=== PATIENT | female | born 1990 | race Caucasian/White ===

== ENCOUNTER 2019-03-30 02:13 | Emergency (ER) | payer BC ==
[2019-03-30 03:12] LABS: ABS Basophils 0.1 10^3/ul (0-0.2); ABS Eosinophils 0.2 10^3/ul (0-0.6); ABS Lymphocytes 2.1 10^3/ul (1.0-4.8); ABS Monocytes 0.6 10^3/ul (0-0.8); ABS Neutrophils 4.5 10^3/ul (1.5-7.7); Hematocrit 39 % (35-47); Hemoglobin 12.7 g/dL (12.0-16.0); Lymphocyte % 28.2 %; Mean Corpuscular HGB Conc 33 g/dL (31-36); Mean Corpuscular Hemoglobin 27 pg (27-31); Mean Corpuscular Volume 82 fL (80-97); Mean Platelet Volume 8.7 fL (7.4-10.4); Nucleated Red Blood Cells % 0.1; Platelet Count 261 10^3/uL (150-450); Red Blood Count 4.68 10^6 /uL (3.70-4.87); Red Cell Distribution Width 14 % (10-15); White Blood Count 7.5 10^3/uL (3.5-10.8)
[2019-03-30 03:34] LABS: ALT 19 U/L (7-52); AST 18 U/L (13-39); Albumin 3.9 g/dL (3.2-5.2); Albumin/Globulin Ratio 1.4 (1-3); Alkaline Phosphatase 81 U/L (34-104); Anion Gap 6 mmol/L (2-11); Blood Urea Nitrogen 20 mg/dL (6-24); CO2 Carbon Dioxide 26 mmol/L (22-32); Calcium 8.9 mg/dL (8.6-10.3); Chloride 108 mmol/L (101-111); EGFR African American 108.8 (>60); EGFR Non-African American 89.9 (>60); Globulin 2.7 g/dL (2-4); Glucose 102 mg/dL (70-100); Potassium 3.5 mmol/L (3.5-5.0); Sodium 140 mmol/L (135-145); Total Protein 6.6 g/dL (6.4-8.9)
[2019-03-30 03:40] LABS: HCG Pregnancy < 0.60 mIU/mL
--- NOTE | 2019-03-30 03:55 | ED ---
Shortness of Breath - HPI Summary HPI Summary: This patient is a 28 year old F presenting to [facility] with a chief complaint of SOB since 2 hours ago, 03/30/19. Symptoms aggravated by nothing. Symptoms alleviated by nothing. Pt reports she was sleeping when she woke up and felt SOB. Pt reports non-productive coughing since November due to Bronchitis. Pt denies fevers, CP, abdominal pain, swelling in legs. Pt denies med problems. Fhx blood clots in grandmother. Pt reports recent car trip from [place]. Not on oral contraceptives, does not smoke. Pt reports bilateral foot pain in the arches of her foot that she attributes to hiking. - History of Current Complaint Chief Complaint: EDShortnessOfBreath Time Seen by Provider: 03/30/19 02:37 Hx Obtained From: Patient Onset/Duration: Lasting Hours, Still Present Aggravating Factors: Nothing Alleviating Factors: Nothing Associated Signs & Symptoms: Cough (Nonproductive) - Allergy/Home Medications Allergies/Adverse Reactions: Allergies Allergy/AdvReac Type Severity Reaction Status Date / Time No Known Allergies Allergy Verified 03/30/19 02:15 Home Medications: Home Medications NK [No Home Medications Reported] 03/30/19 [History Confirmed 03/30/19] PMH/Surg Hx/FS Hx/Imm Hx Cardiovascular History: Reports: Other Cardiovascular Problems/Disorders - denies blood clots Sensory History: Reports: Hx Contacts or Glasses Denies: Hx Deafness Opthamlomology History: Reports: Hx Contacts or Glasses Denies: Hx Legally Blind EENT History: Denies: Hx Deafness - Surgical History Surgery Procedure, Year, and Place: tonsillectomy and adenoidectomy Infectious Disease History: No Infectious Disease History: Denies: Traveled Outside the [place] in Last 30 Days - Family History Known Family History: Positive: Cardiac Disease - blood clots - Social History Alcohol Use: Occasionally Hx Substance Use: No Substance Use Type: Reports: None Hx Tobacco Use: No Smoking Status (MU): Never Smoked Tobacco Review of Systems Negative: Fever Negative: Chest Pain Positive: Shortness Of Breath, Cough Positive: Abdominal Pain Positive: Other - denies swelling in legs All Other Systems Reviewed And Are Negative: Yes Physical Exam - Summary Physical Exam Summary: Constitutional: Well-developed, Well-nourished, Alert. (-) Distressed Skin: Warm, Dry HENT: Normocephalic; Atraumatic Eyes: Conjunctiva normal Neck: Musculoskeletal ROM normal neck. (-) JVD, (-) Stridor, (-) Nuchal rigidity Cardio: Rhythm regular, rate normal, Heart sounds normal; Intact distal pulses; Radial pulses are 2+ and symmetric. (-) Murmur Pulmonary/Chest wall: Effort normal. (-) Respiratory distress, (-) Wheezes, (-) Rales Abd: Soft, (-) tenderness, (-) Distension, (-) Guarding, (-) Rebound Musculoskeletal: (-) Edema, no TTP bilateral feet Lymph: (-) Cervical adenopathy Neuro: Alert, Oriented x3 Psych: Mood and affect Normal Triage Information Reviewed: Yes Vital Signs On Initial Exam: Initial Vitals Temp Pulse Resp BP Pulse Ox 97.5 F 87 20 147/90 99 03/30/19 02:16 03/30/19 02:16 03/30/19 02:16 03/30/19 02:16 03/30/19 02:16 Vital Signs Reviewed: Yes Diagnostics - Vital Signs Vital Signs Temp Pulse Resp BP Pulse Ox 03/30/19 02:16 97.5 F 87 20 147/90 99 - Laboratory Lab Results: Lab Results 03/30/19 03/30/19 Range/Units 02:49 02:49 WBC 7.5 (3.5-10.8) 10^3/uL RBC 4.68 (3.70-4.87) 10^6 /uL Hgb 12.7 (12.0-16.0) g/dL Hct 39 (35-47) % MCV 82 (80-97) fL MCH 27 (27-31) pg MCHC 33 (31-36) g/dL RDW 14 (10-15) % Plt Count 261 (150-450) 10^3/uL MPV 8.7 (7.4-10.4) fL Neut % (Auto) 60.7 % Lymph % (Auto) 28.2 % Dent % (Auto) 8.1 % Eos % (Auto) 2.0 % Baso % (Auto) 1.0 % Absolute Neuts (auto) 4.5 (1.5-7.7) 10^3/ul Absolute Lymphs (auto) 2.1 (1.0-4.8) 10^3/ul Absolute Monos (auto) 0.6 (0-0.8) 10^3/ul Absolute Eos (auto) 0.2 (0-0.6) 10^3/ul Absolute Basos (auto) 0.1 (0-0.2) 10^3/ul Absolute Nucleated RBC 0.0 10^3/ul Nucleated RBC % 0.1 Sodium 140 (135-145) mmol/L Potassium 3.5 (3.5-5.0) mmol/L Chloride 108 (101-111) mmol/L Carbon Dioxide 26 (22-32) mmol/L Anion Gap 6 (2-11) mmol/L BUN 20 (6-24) mg/dL Creatinine 0.77 (0.51-0.95) mg/dL Est GFR ( Amer) 108.8 (>60) Est GFR (Non-Af Amer) 89.9 (>60) BUN/Creatinine Ratio 26.0 H (8-20) Glucose 102 H (70-100) mg/dL Calcium 8.9 (8.6-10.3) mg/dL Total Bilirubin 0.40 (0.2-1.0) mg/dL AST 18 (13-39) U/L ALT 19 (7-52) U/L Alkaline Phosphatase 81 (34-104) U/L Total Protein 6.6 (6.4-8.9) g/dL Albumin 3.9 (3.2-5.2) g/dL Globulin 2.7 (2-4) g/dL Albumin/Globulin Ratio 1.4 (1-3) Beta HCG, Quant < 0.60 mIU/mL Result Diagrams: 03/30/19 02:49 03/30/19 02:49 Lab Statement: Any lab studies that have been ordered have been reviewed, and results considered in the medical decision making process. - Radiology Chest X-Ray Radiology Interpretation Completed By: ED Physician Summary of Radiographic Findings: Per ED physician,. No acute process. Pending official report. - EKG 251 Cardiac Rate: NL - 92 BPM Summary of EKG Findings: An EKG at 0252 reveals normal sinus rhythm 92 BPM. T- wave inversion lead 3. No STEMI. No acute changes. Course/Dx - Course Course Of Treatment: 28-year-old female presents with shortness of breath. Physical exam well-appearing, lungs clear bilaterally. EKG w TWI in lead III otherwise unremarkable. Shortness of breath ddx: consider: COPD exacerbation/ asthma - no h/o COPD, no wheezing on exam. Low suspicion. PNA - no sputum production, no fevers or chills. No leukocytosis. CXR w/o infiltrate. Low suspicion. PTX - breath sounds equal, no risk factors for PTX, CXR w/o e/o PTX. ACS - no CP. Low suspicion. CHF - no h/o CHF, no BROWN or orthopnea, no BLE edema, CXR w/o pulmonary edema. PE - no risk factors for PE, no unilateral leg swelling, PERC negative. Unclear cause of SOB, if symptoms persist recommend f/u with PCP - Diagnoses Provider Diagnoses: Shortness of breath Discharge ED - Sign-Out/Discharge Documenting (check all that apply): Patient Departure - discharge Patient Received Moderate/Deep Sedation with Procedure: No - Discharge Plan Condition: Stable Disposition: HOME Patient Education Materials: Shortness of Breath (ED) Referrals: [facility] [address] [Outside] - 3 Days Additional Instructions: You were seen in the emergency department for short of breath. Your chest x- ray did not show evidence of pneumonia, your labs do not show any evidence of infection. If any studies were not completed at the time of discharge you will be called with the relevant results. Please follow up with your primary care doctor in next 2-3 days and return to emergency department for worsening shortness of breath, chest pain, passing out or concerning symptoms. It was a pleasure taking care of you today. - Billing Disposition and Condition Condition: STABLE Disposition: Home - Attestation Statements Document Initiated by Alyssa: Yes Documenting Scribe: Sania Russ Provider For Whom Alyssa is Documenting (Include Credential): Dr. Juan Sorensen MD Scribe Attestation: ISania scribed for Dr. Juan Sorensen MD on 03/30/19 at [id number]. Scribe Documentation Reviewed: Yes Provider Attestation: The documentation as recorded by the Sania sanchez accurately reflects the service I personally performed and the decisions made by me, Dr. Juan Sorensen MD Status of Scribe Document: Viewed
[2019-03-30 04:25] VITALS: BP 131/84
== END 2019-03-30 04:24 | disposition home or self-care (01) ==
LOC: ED 02:13
DX: R06.02 Shortness of breath (principal)
CPT/HCPCS: 36415; 71046; 80053; 84702; 85025; 93005; 99282